=== PATIENT | female | born 1985 | race Caucasian/White ===

== ENCOUNTER → 2017-12-22 | Outpatient (CLI) | payer OTHER | LOC: FIMAGING 12:12 | PROVIDERS: ATTEND Advanced Practice Midwife | DX: O09.892 Supervision of other high risk pregnancies, second trimester (principal); Z3A.19 19 weeks gestation of pregnancy ==

== ENCOUNTER → 2018-02-05 | Outpatient (CLI) | payer OTHER | LOC: FIMAGING 10:15 | PROVIDERS: ATTEND Advanced Practice Midwife | DX: O09.522 Supervision of elderly multigravida, second trimester (principal); Z3A.25 25 weeks gestation of pregnancy ==

== ENCOUNTER → 2018-02-19 | Outpatient (CLI) | payer OTHER | LOC: FIMAGING 13:42 | PROVIDERS: ATTEND Advanced Practice Midwife | DX: O36.5930 Maternal care for other known or suspected poor fetal growth, third trimester, not applicable or unspecified (principal); Z3A.27 27 weeks gestation of pregnancy ==

== ENCOUNTER → 2018-03-05 | Outpatient (CLI) | payer OTHER | LOC: FIMAGING 11:59 | PROVIDERS: ATTEND Advanced Practice Midwife | DX: O09.523 Supervision of elderly multigravida, third trimester (principal); Z3A.28 28 weeks gestation of pregnancy ==

== ENCOUNTER → 2018-03-12 | Outpatient (CLI) | payer OTHER | LOC: FIMAGING 13:26 | PROVIDERS: ATTEND Advanced Practice Midwife | DX: O09.523 Supervision of elderly multigravida, third trimester (principal); Z3A.30 30 weeks gestation of pregnancy ==

== ENCOUNTER → 2018-03-17 | Outpatient (CLI) | payer OTHER | LOC: FIMAGING 11:13 | PROVIDERS: ATTEND Advanced Practice Midwife | DX: Z36.89 Encounter for other specified antenatal screening (principal); O36.5930 Maternal care for other known or suspected poor fetal growth, third trimester, not applicable or unspecified; Z3A.31 31 weeks gestation of pregnancy ==

== ENCOUNTER → 2018-03-24 | Outpatient (CLI) | payer OTHER | LOC: FIMAGING 11:22 | PROVIDERS: ATTEND Advanced Practice Midwife | DX: O36.5930 Maternal care for other known or suspected poor fetal growth, third trimester, not applicable or unspecified (principal); Z3A.32 32 weeks gestation of pregnancy ==

== ENCOUNTER → 2018-03-31 | Outpatient (CLI) | payer OTHER | LOC: FIMAGING 11:10 | PROVIDERS: ATTEND Advanced Practice Midwife | DX: O09.293 Supervision of pregnancy with other poor reproductive or obstetric history, third trimester (principal); Z3A.33 33 weeks gestation of pregnancy ==

== ENCOUNTER → 2018-04-21 | Outpatient (CLI) | payer OTHER | LOC: FIMAGING 08:26 | PROVIDERS: ATTEND Advanced Practice Midwife | DX: Z34.93 Encounter for supervision of normal pregnancy, unspecified, third trimester (principal); Z3A.35 35 weeks gestation of pregnancy; Z87.59 Personal history of other complications of pregnancy, childbirth and the puerperium ==

== ENCOUNTER 2018-05-10 06:00 | Inpatient (IN) | payer OTHER ==
[2018-05-10] MEDS ORDERED: EPSOM SALT 454 GM TP PRN (06:27)
[2018-05-10] MEDS ORDERED: LIDOCAINE 1% 300 MG/30 ML SDV SC PRN (06:27)
[2018-05-10] MEDS ORDERED: LR 1,000 ML IV PRN (06:27)
[2018-05-10] MEDS ORDERED: OXYTOCIN/RINGERS LACTATE 1,000 ML IV PRN (06:27)
[2018-05-10] MEDS ORDERED: OLIVE OIL 118 ML BTL MISC PRN (06:27)
[2018-05-10] MEDS ORDERED: IBUPROFEN 600 MG TAB PO PRN (06:27)
[2018-05-10] MEDS ORDERED: MISOPROSTOL 200 MCG TAB PR PRN (06:27)
[2018-05-10 06:40] LABS: PLATELET COUNT 274 10^3/uL (150-400)
[2018-05-10] MEDS ORDERED: LR 500 ML IV PRN (07:31)
[2018-05-10] MEDS ORDERED: OLIVE OIL 118 ML BTL MISC ONE (07:39)
[2018-05-10] MEDS ORDERED: LIDOCAINE 1% 300 MG/30 ML SDV ONE (07:39)
[2018-05-10] MEDS ORDERED: AMMONIA AROMATIC 1 EACH AMP IH ONE (07:39)
[2018-05-10] MEDS ORDERED: TERBUTALINE SULFATE 1 MG/ML VIAL ONE (07:39)
[2018-05-10] MEDS ORDERED: MISOPROSTOL 200 MCG TAB ONE (07:40)
[2018-05-10] MEDS ORDERED: OXYTOCIN 10 UNIT/ML VIAL ONE (07:40)
[2018-05-10] MEDS ORDERED: OXYTOCIN/RINGERS LACTATE 500 ML IV SCH (08:00)
--- NOTE | 2018-05-10 11:49 | PDGENHP ---
History and Physical History and Physical: Care: [facility] HPI: Asiya aVldez is a [id number] with IUP @ 39-0 weeks that presents to L&D for IOL 2/2 IUGR. She denies any regular contractions, LOF, VB. She reports +FM. EDC: 05/17/18 which is based on LMP: 08/10/2017 which is known and consistent with Ultrasound at 19 weeks. Her is complicated by: rh negative, prior baby with congenital heart defect ( echo normal), IUGR during this - resolved @ 34wks, h/o anxiety/PP baby blues Review of Systems: Constitutional: Denies any fever, chills, or fatigue HEENT: denies any visual changes, difficulty swallowing, hearing loss Cardiovascular: Denies any chest pain, palpitations, leg swelling Respiratory: denies any cough, wheezing, or shortness of breathe GI: Denies any nausea, vomiting, diarrhea, constipation : denies any dysuria, urgency, frequency, vaginal bleeding Musculoskeletal: denies any muscle or bone pain Skin: denies any rashes Neuro: denies any headache, seizures, lightheadedness, dizziness, or loss of consciousness Psychiatric: denies any depression, anxiety, or SI/HI thoughts HISTORY: Previous OB history: x3 (all out of hospital births), 1 child born with coarctation of aorta Past medical history: situational depression/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 Family history: Not relevant Medications: PNV, rhogam (02/02/18) Allergies (list reaction): NKDA LABS: Rh: A neg ABS: + on admission, all significant antibodies ruled out Rubella: Immune HbsAg: NR HIV: NR VDRL: NR 1hr: 77 GC: Neg Chlamydia: Neg Pap: Normal GBS: negative BMI: (prepreg) 21 PHYSICAL EXAM: Constitutional: WN, A&Ox3 HEENT: normocephalic atraumatic, supple Skin: Warm, dry, intact Heart: RRR, no murmur Chest: CTA-B Abdomen: Soft, nontender, gravid SVE: deferred (was 2cm/50/-2 in office last week) Extremities: no edema, negative homans sign Neuro: grossly normal Psych: normal affect assessment: FHT baseline 125 +accels, no decels, moderate variability Contractions: toco irregular Assessment: * [id number] with IUP@ 39-0wks * IOL 2/2 h/o IUGR * GBS Negative * Rh NEgative * cat 1 FHR tracing Plan: * admit to L&D * start pitocin per protocol * AROM when able * pain management PRN * anticipate Today's visit was approximately 30 min, of which >50% of visit 20 min, was spent face to face with pt on direct counseling/coordination of care.
--- NOTE | 2018-05-10 11:57 | OBPROG ---
Labor Progress Note Assessment/Plan: Assessment: 32yo with IUP@ 39-0wks IOL 2/2 IUGR GBS Negative Cat 1 FHR tracing Plan: cont pitocin AROM when able pain management PRN reassess 2-3hr/PRN anticipate Subjective/Intrapartum Course: 05/10/18 11:51 Pt starting to feel more discomfort with contractions. She denies any LOF, VB. She reports +FM. She is ambulating well. She desires hydrotherapy when pain worsens. She plans to have a smoothie at this time. Agreeable to AROM if/when needed. Objective: 05/10/18 06:30 Patient ABO/Rh A NEGATIVE 05/10/18 06:30 - Contraction Pattern Assessment Current Contraction Pattern: Regular - FHR Assessment Meyer FHR (bpm): 125 FHR Pattern Variability: Moderate FHR Category: 1 Oxytocin Orders Assessment - Pre-Induction/Augmentation Assessment Gestational Age: 39 week(s) and 0 day(s) ICD10 Worksheet Patient Problems: Problems Problem Status Onset Encounter for induction of labor Acute IUGR, Acute - ICD10 Problem Qualifiers (1) IUGR, (2) Encounter for induction of labor
[2018-05-10] MEDS ORDERED: SIMETHICONE 80 MG TAB CHEW PO PRN (15:45)
[2018-05-10] MEDS ORDERED: HYDROCORTISONE 0.5% CREAM TP PRN (15:45)
--- NOTE | 2018-05-10 15:49 | OBDEL ---
Info Type: Vaginal Presentation at Delivery: Vertex L&D Analgesia/Anesthesia Type: None GBS+: No Intrapartum Medications: Generic Name Dose Route Start Last Admin Trade Name Freq PRN Reason Stop Dose Admin Lactated Ringer's 1,000 mls @ 0 mls/hr 05/10/18 06:27 05/10/18 08:10 Lr IV 05/11/18 06:26 1,000 mls PRN PRN Administration SEE PROTOCOL CONDITIONS Protocol Per Protocol Oxytocin/Lactated Ringer's 500 mls @ 0 mls/hr 05/10/18 08:00 05/10/18 08:12 Pitocin 30 Units/Lr (Premix) IV 11/06/18 07:59 500 mls CONT MARISSA Administration Protocol Per Protocol Discontinued Medications Generic Name Dose Route Start Last Admin Trade Name Freq PRN Reason Stop Dose Admin Ibuprofen 600 mg 05/10/18 06:27 05/10/18 15:38 Motrin PO 600 mg ONCE PRN Administration post , pain - Hospital Course Intrapartum: 05/10/18 11:51 Pt starting to feel more discomfort with contractions. She denies any LOF, VB. She reports +FM. She is ambulating well. She desires hydrotherapy when pain worsens. She plans to have a smoothie at this time. Agreeable to AROM if/when needed. Indications for Delivery: Growth Restriction w/Abnormal Doppler studies Vaginal Delivery - Delivery Provider Delivery Physician/CNM: Darya Rashid - Labor and Delivery Onset of Contractions Date: 05/10/18 Onset of Contractions Time: 13:00 Onset of Contractions Type: Induced Rupture of Membranes Date: 05/10/18 Rupture of Membranes Time: 12:19 Rupture of Membranes Type: Artificial Amniotic Fluid Color: Clear Dilation Complete Date: 05/10/18 Dilation Complete Time: 14:53 Placenta Delivery Date: 05/10/18 Placenta Delivery Time: 15:19 Total Hours of Labor: 2 Vaginal Sponge Count Correct: Yes Vaginal Needle Count Correct: Yes Vaginal Sweep Performed: Yes EBL: 300 Delivery Events: Other (Specify) (true knot) Delivery Comment: labored in the tub, delivered on hands/knees. - Medications Labor Augmentation/Induction Methods Used: Pitocin Labor Augmentation/Induction Indication: IUGR [place] Data GURPREET: 05/17/18 Gestational Age: 39 week(s) and 0 day(s) Meyer Delivery Date: 05/10/18 Delivery Time: 15:05 Sex of : Female Score (1 Min): 8 Score (5 Min): 8 ICD10 Worksheet Patient Problems: Problems Problem Status Onset Encounter for induction of labor Acute IUGR, Acute Rh negative, maternal Acute (spontaneous vaginal delivery) Acute True knot of umbilical cord, delivered Acute - ICD10 Problem Qualifiers (1) IUGR, (2) Encounter for induction of labor (3) (spontaneous vaginal delivery) (4) True knot of umbilical cord, delivered (5) Rh negative, maternal
[2018-05-10] MEDS: DOCUSATE SODIUM 100 MG CAP PO PRN (22:19)
[2018-05-10] MEDS: IBUPROFEN 600 MG TAB PO PRN (22:19)
[2018-05-10] MEDS: ACETAMINOPHEN 325 MG TAB PO PRN (22:19)
[2018-05-11] MEDS: IBUPROFEN 600 MG TAB PO PRN ×2 (04:18→10:58)
[2018-05-11] MEDS: ACETAMINOPHEN 325 MG TAB PO PRN ×2 (04:19→10:59)
--- NOTE | 2018-05-11 08:34 | OBGCSDC ---
General Delivery Information - General Info : 4 Para: 4 Abortions: 0 Type: Vaginal L&D Analgesia/Anesthesia Type: None Admission Date: 05/10/18 Labs: Patient ABO/Rh A NEGATIVE 05/10/18 06:30 Hct 36.0 % (38.0-47.0) L 05/10/18 06:30 - Hospital Course Intrapartum: 05/10/18 11:51 Pt starting to feel more discomfort with contractions. She denies any LOF, VB. She reports +FM. She is ambulating well. She desires hydrotherapy when pain worsens. She plans to have a smoothie at this time. Agreeable to AROM if/when needed. : 05/11/18 08:34 Doing well. Pain well controlled with PO medications. Bleeding is moderate, denies clots. Voiding well. Vaginal - Delivery Provider Delivery Physician/CNM: Darya Rashid - Diagnosis Labor: Induced Rupture of Membranes Type: Artificial Amniotic Fluid Color: Clear Delivery Events: Other (Specify) (true knot) - Delivery EBL: 300 [place] Data GURPREET: 05/17/18 Gestational Age: 39 week(s) and 1 day(s) Meyer Delivery Date: 05/10/18 Delivery Time: 15:05 Sex of : Female [place] Weight (gm): 3385 g Score (1 Min): 8 Score (5 Min): 8
[2018-05-11 08:55] VITALS: BP 104/65
[2018-05-11] MEDS: DOCUSATE SODIUM 100 MG CAP PO PRN (10:59)
== END 2018-05-11 17:08 | disposition home or self-care (01) | DRG 807 ==
LOC: FLD 06:09 → FOB 19:12
PROVIDERS: ADMIT Advanced Practice Midwife; ATTEND Advanced Practice Midwife
PROC: 10E0XZZ Delivery of Products of Conception, External Approach (ICD-10-PCS; principal; 2018-05-10)
PROC: 3E033VJ Introduction of Other Hormone into Peripheral Vein, Percutaneous Approach (ICD-10-PCS; principal; 2018-05-10)
PROC: 10907ZC Drainage of Amniotic Fluid, Therapeutic from Products of Conception, Via Natural or Artificial Opening (ICD-10-PCS; principal; 2018-05-10)
DX: O36.5930 Maternal care for other known or suspected poor fetal growth, third trimester, not applicable or unspecified (principal); Z3A.39 39 weeks gestation of pregnancy; Z37.0 Single live birth
CPT/HCPCS: J2590; J3105